=== PATIENT | female | born 1960 | race Caucasian/White ===

== ENCOUNTER → 2016-06-29 | Outpatient (CLI) | payer BC ==
[~2016-06-29] MED LIST: ADVIL200 MG PO; ALTACE10 MG PO; HYDRODIURIL25 MG PO; KCL - MICRO-K10 MEQ PO; KEPPRA500 MG PO; LASIX20 MG PO; LEVOTHROID(SY175 MCG PO; NORVASC5 MG PO; PROTONIX40 MG PO; TYLENOL EXTRA500 MG PO; ZOLOFT50 MG PO
[2016-06-29 11:43] LABS: CREATININE 0.9 mg/dL (0.5-1.1)
[2016-06-29 11:47] LABS: ESTIMATED GFR (MDRD EQUATION) > 60
== END | disposition disaster alternative care site (69) ==
LOC: GLAB 10:55 → GRAD 13:00
PROVIDERS: Neurological Surgery
DX: D49.6 Neoplasm of unspecified behavior of brain (principal); G93.9 Disorder of brain, unspecified
CPT/HCPCS: A9577

== ENCOUNTER 2016-10-03 06:18 | Day surgery (SDC) | payer BC ==
[~2016-10-03] VITALS: Ht 167.6 cm; Wt 114.6 kg
--- NOTE | ~2016-10-03 | OR ---
PATIENT'S NAME: JONATHAN PASCUAL [facility] AGE: 56 Y [address] ROOM: [address] [address] LOCATION: [facility] ADMIT DATE: 10/03/2016 OR/Procedure Report DISCHARGE DATE: FAMILY PHYSICIAN: Snuil Sanders MD ATTENDING PHYSICIAN: Zachary Parra SURGEON: Zachary Parra MD CLAM SHUCKER: DATE OF PROCEDURE: 10/03/2016 PREOPERATIVE DIAGNOSIS: Cervical disk herniation at C4-5, C5-6, and C6-7 plus stenosis of the spinal canal at C4-5, C5-6, and C6-7. POSTOPERATIVE DIAGNOSIS: Cervical disk herniation at C4-5, C5-6, and C6-7 plus stenosis of the spinal canal at C4-5, C5-6, and C6-7. OPERATION PROPOSED AND PERFORMED: 1. Anterior cervical microdiskectomy at C4-5. 2. Intracervical microdiskectomy at C5-6. 3. Anterior cervical microdiskectomy at C6-7. 4. Fusion using allografts at C4-5, C5-6, and C6-7 anteriorly. 5. Plating using the Inion absorbable plates. 6. Microscope. 7. Fluoroscopy with interpretation. DESCRIPTION OF PROCEDURE: Under general anesthesia, the patient was positioned supine. The neck was extended. The neck and upper chest were prepped and draped in the usual fashion. A curvilinear incision was then carried out extending from the anterior border of the sternomastoid muscle to the midline. We then continued our dissection in the plane between the sternomastoid muscle and the strap muscles. The strap muscles were then retracted away from the midline. The dissection was carried out medial to the carotid sheath and the carotid artery. This dissection got us to the prevertebral fascia, and the prevertebral fascia was cauterized and incised. We got to the vertebral bodies and disk spaces. Two spinal needles were placed to disk spaces, and these turned out to be the C4-5 and C6-7 disk spaces. These disk spaces were marked and then the disk space in between the C5-6 disk space was also marked. We went ahead and dissected the longus colli muscles from their attachments to the C4, C5, C6, C7 vertebral bodies and the Band Master self-retaining retractors were then used for retraction making sure that the transverse blades were under the longus colli muscles. The incision into the disk spaces was increased. We took some of the disk out as this would then enable us to distract the disk spaces. Starting at all the levels, we drilled in the distraction rods into the C4, C5, C6, and C7 vertebral bodies. The C6-7 disk space was then distracted, took out as much disk material as we could openly. Then, we brought in the microscope. With the PATIENT'S NAME: JONATHAN PASCUAL [facility] AGE: 56 Y [address] ROOM: [place] [address] LOCATION: [facility] ADMIT DATE: 10/03/2016 OR/Procedure Report DISCHARGE DATE: FAMILY PHYSICIAN: Sunil Sanders MD ATTENDING PHYSICIAN: Zachary Parra aid of the microscope, we completely removed the disk from the C6-7 disk space. The findings were there were osteophytes in the posterior-inferior and posterior-superior parts of the C6 and C7 vertebral bodies, and this extended into the neural foramina. The osteophytes were excised using Kerrison rongeurs. The end to the dura as well as the neural foramina were quite free. After this was done, we then put in a piece of Gelfoam soaked in thrombin as well as patties soaked in thrombin. The distraction was released. We then continued carrying out the same procedure at the C5-6 and C4-5 levels. After we had obtained hemostasis in the disk spaces by using Gelfoam soaked in thrombin and also patties soaked in thrombin at the C4-5 level, we had copious bleeding which we were able to control with the Gelfoam first and finally with the powdered Gelfoam. We eventually did wash out most of the powdered Gelfoam. We also used the powdered Gelfoam at the C5-6 level to further control any oozing from the bone primarily. After this was done, the next thing we did was the disk space distraction, we then used the sizer to get the appropriate-size allograft that we needed. We then tapped the appropriate size allograft into the 3 empty disc spaces. The heights of the graft that we used was 5 mm for the 5-6 and C6-7 levels and 6 mm at the C4-5 level. Next, the distraction rods were then removed and the holes created by them was plugged using bone wax. Next, the soft tissue was then dissected away from the anterior-inferior, anterior-superior, and the anterior portions of the C4, C7 and C5 and C6 vertebral bodies. After this was done, there were very small anterior osteophytes which we shaved off. Next, we put in the Inion absorbable plate. We had to use 2 because we were doing 3 levels. We did was to start with the upper levels that was at the C4-5 and C5-6 levels. We got a template to get the appropriate length inion plate that we needed. Having done that, we put it in sterile warm saline and we did not need to really did not do any shaping of the plate. It needed very minimal lordosis. Putting the plate anterior to the C4, C5, C6 vertebral bodies and straddling the disk spaces, we moved the plate as superiorly as we could so as to create room for the inferior plate that we were going to use for the C6-7 level. Starting with plate holding pins, we tapped the plate, screwed the plate holding pins into the vertebral bodies to hold the plate in position. Next, using the double-barrel guide, we drilled, tapped, and put the screws into the vertebral body through the holes in the plate. After we had done that, we then used the double-barrel guide to do the same thing at the remaining 2 through the remaining 4 holes taking off the plate holding pins when we got to that side. After this was done, we then got the shortest plate which we decided to use for the C6-C7 level, and we were able to get the holes in the upper portion of the plate through which the screws were going to go through just superior to the disk space. We kept the plate initially in position using the plate holding pins. Next, starting at the superior end, we angled the guide superiorly and then as a result, we then went ahead and used the guide to drill and tap and put the screws in. The same thing was done with the second hole which was that in the superior portion of the plate that was going into PATIENT'S NAME: JONATHAN PASCUAL Castillo [facility] AGE: 56 Y [address] ROOM: [id number] [place], [place] [address] LOCATION: [facility] ADMIT DATE: 10/03/2016 OR/Procedure Report DISCHARGE DATE: FAMILY PHYSICIAN: Sunil Sanders MD ATTENDING PHYSICIAN: Zachary Parra the C6 vertebral bodies. After we had done this, we then removed the plate holding pins. Next, we then used the double-barrel guide, used it to drill and tap and put the screws into the remaining two holes. At the end of this, the construct looked quite good. It was solid, and the wound was then thoroughly irrigated with bacitracin irrigation. Bipolar cautery was used for hemostasis in the soft tissue, and the incision was then closed in layers, first the platysma and then the skin. Prior to closure, we examined the wound very well to make sure there was no bleeding and where we found some bleeding, the vessels were cauterized using the bipolar cautery. Next, the C-arm was then brought in. We did a fluoroscopy to make sure that the screws and graft and plate were in good position and they were. I should point out that when we were doing diskectomy, removing the posterior longitudinal ligament removing the osteophytes, we carried these out using the microscope. The patient tolerated the procedure well and was taken to the recovery room. ZACHARY PARRA MD AEB/modl /[id number] d: 10/03/[id number] t: 11/01/16 1326, OPERATIVE SUMMARY
--- NOTE | 2016-10-03 16:14 | NUR ---
Significant Event:A/O X 3. No numbness or tingling in any extremity. Normal sensation in all extremities, edilson strong hand grasps, dorsi and plantar flexion of edilson feet. SBP 100's to 120's. HR 90's. O2 sats 90's, remains on 1L/NC. Incentive spirometer at the bedside. R) shoulder Pain controlled with 1 Percocet last at 1341. NS infusing at 125 ml/h. NO nausea, enjoying a cola. Island barrier dressing clean, dry and intact to R) anterior neck. Follow up:Post op vital signs in progress, 2nd hourly at 1845.
--- NOTE | 2016-10-04 04:06 | NUR ---
Significant Event: Pt A&Ox3. VS stable, remains on RA. No numbness or tingling in extremities. Has full ROM and equal strength throughout. Dressing remains intact with shadow drainage. Up walking with SBA to bathroom. Does have episodes (was previous before surgery) with balance issues when first standing up. PIV in RH, will SL after the bag is finished. Pain adequately controlled with pain meds. Follow up: To d/c home today with . Continue plan of care.
--- NOTE | 2016-10-04 14:39 | NUR ---
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 Explored if Hafsa needed any equipment or support at home. She denied any needs. Thanked her for choosing [facility].
--- NOTE | 2016-10-04 19:16 | NUR ---
Discharge instructions given to patient and . REviewed s/s/ infection, all medications, when to call the dr, f/u appt with family dr needs to be made to have connie removed, care of dressing, when to call the dr, etc. Refer to the discharge instructions. All belongings sent with patient. To front door per w/c.
== END 2016-10-04 14:45 | disposition disaster alternative care site (69) ==
LOC: G3N 06:18 → GMSU 06:18 → GSDC 06:18 → G3N 14:00 → GSDC 10-04 14:45
PROC: 0RB30ZZ Excision of Cervical Vertebral Disc, Open Approach (ICD-10-PCS; principal; 2016-10-03)
PROC: 0RG20K0 Fusion of 2 or more Cervical Vertebral Joints with Nonautologous Tissue Substitute, Anterior Approach, Anterior Column, Open Approach (ICD-10-PCS; 2016-10-03)
DX: M50.223 Other cervical disc displacement at C6-C7 level (principal); M48.02 Spinal stenosis, cervical region; M47.812 Spondylosis without myelopathy or radiculopathy, cervical region; I10 Essential (primary) hypertension; I45.10 Unspecified right bundle-branch block; K21.9 Gastro-esophageal reflux disease without esophagitis; M19.90 Unspecified osteoarthritis, unspecified site; F32.9 Major depressive disorder, single episode, unspecified; Z98.890 Other specified postprocedural states; Z88.1 Allergy status to other antibiotic agents; Z88.0 Allergy status to penicillin; Z88.8 Allergy status to other drugs, medicaments and biological substances; Z79.899 Other long term (current) drug therapy
CPT/HCPCS: C1713; C1776; J1100; J2001; J2250; J2405; J3370; J7030; J7120